=== PATIENT | female | born 1935 | race Asian ===

== ENCOUNTER → 2018-10-17 | Outpatient (CLI) | payer MEDICARE ==
[~2018-10-17] MED LIST: ALDACTONE25 MG PO; ANTIVERT25 MG PO; ASPIRIN81 M2 PO; ATORVASTATIN CA10 MG PO; ATORVASTATIN CA40 MG PO; B12INJ IM; BAUSCH; BRILINTA90 MG PO; DONEPEZIL HCL5 MG PO; ESTRACE CREAM VAG; IMDUR 30 MG TAB30 M1 PO; LIPITOR 10 MG10 M1 PO; LISINOPRIL10 MG PO; LOPRESSOR25 PO; MACROBID 100 M100 M1 PO; NITROGLYCERIN0.4 MG SL; NITROGLYCERIN0.4 MG SUBLING; PREMARIN0.625 MG PO; PREMARIN0.9 M1 PO; PREMARIN0.9 MG; PREMARIN1.25 MG PO; PROLOPRIM100 MG PO; PYRIDIUM200 MG PO; SYNTHROID300 MCG; SYNTHROID75 MCG PO; SYSTANE ULTRA 010 ML OPHTHALMIC; TRAVATAN Z2.5 ML OPHTHALMIC; [UNRECOGNIZED DRUG - OTHER]; [UNRECOGNIZED DRUG - REMARK]
== END ==
LOC: M.RAD 15:08
DX: M47.896 Other spondylosis, lumbar region (principal); M41.86 Other forms of scoliosis, lumbar region; M16.11 Unilateral primary osteoarthritis, right hip; M25.561 Pain in right knee

== ENCOUNTER 2019-01-05 10:10 | Inpatient (IN) | payer MEDICARE ==
[~2019-01-05] VITALS: Ht 157.5 cm; Wt 57.2 kg
[2019-01-05 10:15] VITALS: BP 161/59
[2019-01-05 10:33] LABS: HEMATOCRIT 38.5 % (37.0-47.0); HEMOGLOBIN 12.7 gm/dL (12.0-15.0); MCH 28.3 pg (26.0-34.0); MCHC 33.1 g/dL (28.0-37.0); MCV 85.5 fL (80.0-100.0); MPV 7.5 fl. (7.2-11.1); RBC 4.5 mil/uL (4.20-5.00); RDW-CV 14.2 % (10.5-14.5); WBC 6.2 thou/uL (4.0-11.0)
[2019-01-05 10:43] LABS: POC CA IONIZED 4.7 mg/dL (4.5-5.3); POC CREATININE 1.2 mg/dL (0.6-1.3); POC HEMOGLOBIN 12.6 g/dL (12.0-17.0); POC POTASSIUM 3.7 mmol/L (3.5-4.9)
[2019-01-05 10:44] LABS: PROTIME 10.5 Seconds (9.20-11.50)
[2019-01-05 10:50] LABS: ALBUMIN 3.5 g/dL (3.4-5.0); CREATININE 1.4 mg/dL (0.6-1.3); POTASSIUM 3.7 mmol/L (3.5-5.1); TOTAL BILIRUBIN 0.6 mg/dL (<0.1-1.0); TOTAL PROTEIN 6.9 g/dL (6.4-8.2)
[2019-01-05 11:31] LABS: URINE BILIRUBIN NEGATIVE (Negative); URINE BLOOD TRACE (Negative); URINE CLARITY CLEAR; URINE COLOR STRAW; URINE GLUCOSE-RANDOM NEGATIVE (Negative); URINE KETONES NEGATIVE (Negative); URINE LEUKOCYTES NEGATIVE (Negative); URINE NITRITE NEGATIVE (Negative); URINE PROTEIN NEGATIVE (Negative); URINE UROBILINOGEN 0.2 E.U./dl (0.2-1.0)
[2019-01-05 11:40] LABS: PCO2 31.4 mmHg (35.0-45.0); PO2 75.4 mmHg (75.0-100.0); pH 7.462 (7.340-7.450)
[2019-01-05 12:14] VITALS: BP 165/70
[2019-01-05 12:28] VITALS: BP 164/73
[2019-01-05 15:47] VITALS: BP 139/91
[2019-01-05 20:00] VITALS: BP 154/58
[2019-01-06] VITALS: BP 148/59
[2019-01-06 04:00] VITALS: BP 150/59
[2019-01-06 08:00] VITALS: BP 145/75
[2019-01-06 12:00] VITALS: BP 128/54
[2019-01-06 15:04] VITALS: BP 128/54
[2019-01-06 15:49] LABS: CHOLESTEROL 261 mg/dL (<200); HDL CHOLESTEROL 38 mg/dL (>40); LDL CHOLESTEROL 169 mg/dL (<100); TC:HDL 6.9 Ratio (Not establshd); TRIGLYCERIDE 270 mg/dL (<150); VLDL 54 mg/dL (<40)
[2019-01-06 15:50] LABS: SERUM ASSESSMENT Clear
--- NOTE | 2019-01-07 11:02 | EKG ---
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 : 1935 Requested By: Kala Somers Order Number: [id number] MD: Syed Thrasher Measurements Intervals [place] Rate: 56 P: 34 [place]: 123 QRS: -18 QRSD: 74 T: 70 QT: 439 QTc: 424 Interpretive Statements Sinus rhythm Borderline left axis deviation Abnormal R-wave progression, early transition Compared to ECG 04/12/2017 11:31:21 No significant changes Electronically Signed On 01-07-2019 11:01:54 CELL LINER by Syed Thrasher [email or web address] <ELECTRONICALLY SIGNED> By: Syed Thrasher MD, FAC 01/07/19 1101 1049 1049 Syed Thrasher MD, [facility] /EPI
== END 2019-01-06 15:35 | disposition home or self-care (01) | DRG 69 ==
LOC: M.ERS 10:10 → M.TBA-ER 11:32 → M.2W 12:44
PROVIDERS: Personal Emergency Response Attendant; ADMIT Internal Medicine
DX: G45.9 Transient cerebral ischemic attack, unspecified (principal); E03.9 Hypothyroidism, unspecified; E78.00 Pure hypercholesterolemia, unspecified; G30.9 Alzheimer's disease, unspecified; F02.80 Dementia in other diseases classified elsewhere, unspecified severity, without behavioral disturbance, psychotic disturbance, mood disturbance, and anxiety; I10 Essential (primary) hypertension; Z81.8 Family history of other mental and behavioral disorders; Z90.710 Acquired absence of both cervix and uterus; Z95.5 Presence of coronary angioplasty implant and graft; Z88.1 Allergy status to other antibiotic agents; Z91.02 Food additives allergy status; Z82.49 Family history of ischemic heart disease and other diseases of the circulatory system; Z79.899 Other long term (current) drug therapy

== ENCOUNTER 2019-04-12 20:13 | Inpatient (IN) | payer MEDICARE ==
[~2019-04-12] VITALS: Ht 157.5 cm; Wt 59.0 kg
[2019-04-12 20:15] VITALS: BP 144/69
[2019-04-12] MEDS ORDERED: MURO-12815 ML/BOT OPHTHALMIC (20:24)
[2019-04-12] MEDS ORDERED: SYSTANE ULTRA 010 ML OPHTHALMIC (20:25)
--- NOTE | 2019-04-12 20:42 | NUR ---
PT ARRIVED VIA STRETCHER. PT MOVED TO ER BED VIA ER STAFF. PT AAOX4. RESP REG AND UNALBORED SKIN W/D. O2 2L BNC INTACT. SPOUSE PRESENT AT BEDSIDE. PT STATED CHEST PAIN RADIATED TO RIGHT ARM. MONITORS APPLIED, EKG PERFORMED, DR PLAZA AT BEDSIDE. WILL CONTINUE TO MONITOR
[2019-04-12 20:49] LABS: ABSOLUTE BASOPHILS 0.1 thou/uL (0.0-0.2); ABSOLUTE EOSINOPHILS 0.4 thou/uL (0.0-0.7); ABSOLUTE LYMPHOCYTES 1.9 thou/uL (0.8-5.3); ABSOLUTE MONOCYTES 0.6 thou/uL (0.0-1.2); ABSOLUTE NEUTROPHILS 5.1 thou/uL (1.6-8.1); BASOPHILS 1.2 %; EOSINOPHILS 5.3 %; HEMATOCRIT 35.4 % (37.0-47.0); HEMOGLOBIN 11.9 gm/dL (12.0-15.0); LYMPHOCYTES 23.8 %; MCH 28.1 pg (26.0-34.0); MCHC 33.7 g/dL (28.0-37.0); MCV 83.4 fL (80.0-100.0); MONOCYTES 7.2 %; MPV 7.6 fl. (7.2-11.1); NUCLEATED RBCS 0 /100WBC; PLATELET COUNT* 435 thou/uL (150-400); POLYS 62.5 %; RBC 4.24 mil/uL (4.20-5.00); RDW-CV 14.1 % (10.5-14.5); WBC 8.1 thou/uL (4.0-11.0)
[2019-04-12 20:54] LABS: ANION GAP 10 mmol/L (7-16); BUN 24 mg/dL (7-18); CALCIUM 8.9 mg/dL (8.5-10.1); CHLORIDE 104 mmol/L (98-107); CO2 26 mmol/L (21-32); CREATININE 1.3 mg/dL (0.6-1.3); GLUCOSE 130 mg/dL (70-99); POTASSIUM 3.9 mmol/L (3.5-5.1); SODIUM 140 mmol/L (136-145)
[2019-04-12 21:04] LABS: ALBUMIN 3.5 g/dL (3.4-5.0); ALKALINE PHOSPHATASE 115 U/L (46-116); LIPASE 343 U/L (73-393); MAGNESIUM 2.3 mg/dL (1.8-2.4); NT-PRO BRAIN NAT PEPTIDE 88 pg/mL (<300); SGPT 30 U/L (30-65); TOTAL BILIRUBIN 0.3 mg/dL (<0.1-1.0); TOTAL PROTEIN 6.9 g/dL (6.4-8.2); TROPONIN-I LEVEL <0.06 ng/mL (<0.06)
[2019-04-12 21:42] LABS: SGOT 26.4 U/L (15-37)
[2019-04-12 22:57] VITALS: BP 129/56
[2019-04-13 04:00] VITALS: BP 165/50
[2019-04-13 08:00] VITALS: BP 139/52
[2019-04-13 11:29] VITALS: BP 144/69
--- NOTE | 2019-04-13 12:31 | NUR ---
ASSUMED PT CARE REPORT RECEIVED FROM NURSE. PT IS AOX3 FORGETFUL DUE TO HX OF DEMENTIA. DENIES ANY KIND OF PAIN. NO CHEST PAIN. SINUS RYTHM TRACING ON RN DISCHARGE. ON RA. PT IN ROOM. NPO STATUS MAINTAINED, AWAITING FOR BOX OFFICE AGENT. BOX OFFICE AGENT SIGNED OFF. HOSPITALIST NOTIFIED. DISCHARGE PENDING. WILL CONTINUE TO MONITOR PT.
[2019-04-13 13:10] VITALS: BP 144/69
--- NOTE | 2019-04-14 12:21 | CON ---
[address] [address] CONSULTATION Name: LATASHAADRYAN Room: [address] IN M.R.#: [id number] Admission: 04/12/19 Attend Phys: Mk Leonardo Discharge: 04/13/19 Date of : 37 Report #: [id number] THIS REPORT FOR: //name// CC: Sanjay Bullock DATE OF SERVICE: 04/13/2019 CARDIOLOGY CONSULTATION INDICATION: Chest pain. HISTORY OF PRESENT ILLNESS: The patient is a very pleasant 83-year-old white female with history of coronary artery disease. In February 2013, she had percutaneous coronary intervention to the proximal right coronary artery and proximal left anterior descending coronary artery in a staged fashion. She has been stable since that time. Last evening, she had midsternal chest discomfort radiating to the right arm. She was given a sublingual nitroglycerin with relief of pain and presented to the hospital for further evaluation. Initial EKG shows sinus rhythm with no acute ST or T-wave abnormalities. Troponins are all less than 0.06. At the time of my interview, the patient is pain free. She has had no recurrence of her discomfort since the initial episode. With her chest pain, she denied any associated shortness of breath, nausea or diaphoresis. PAST MEDICAL HISTORY: 1. Coronary artery disease with percutaneous coronary intervention to LAD and RCA in February 2013. 2. Hyperlipidemia. 3. Remote history of hysterectomy. 4. Remote history of tonsillectomy. 5. Remote history of rotator cuff surgery. FAMILY HISTORY: Positive for coronary artery disease in the patient's brother and father. SOCIAL HISTORY: The patient is retired. She drinks alcohol occasionally. She does not smoke. She lives with her . ALLERGIES: None documented. HOME MEDICATIONS: Aspirin 81 mg daily, Aricept 10 mg daily, Synthroid 75 mcg daily, Antivert 25 mg q.i.d. p.r.n., Nitrostat sublingual p.r.n., propylene glycol/PEG 400 as directed, Travatan eyedrops at bedtime, [place] [address] CONSULTATION Name: ARLEEN PAGAN Room: [address]#: [id number] Admission: 04/12/19 Attend Phys: Mk Leonardo Discharge: 04/13/19 Date of : 37 Report #: [id number] directed. REVIEW OF SYSTEMS: Fourteen-point review of systems positive for chest discomfort as outlined above, cough that is nonproductive. She wears glasses without acute visual changes. Otherwise, 14-point review of systems was unremarkable. PHYSICAL EXAMINATION: VITAL SIGNS: Stable. Blood pressure 139/52, pulse is 60 and regular. GENERAL: This is a pleasant elderly female, in no distress. Mood and affect appropriate. HEENT: Extraocular muscles intact. Mucous membranes are moist. NECK: Shows no jugular venous distention. There are no carotid bruits. CHEST: Reveals clear lung berger without wheezes or rales. CARDIOVASCULAR: Reveals a regular rhythm with normal S1 and S2. I do not appreciate gallop or murmur. ABDOMEN: Reveals normal bowel sounds. The abdomen is soft, nontender. EXTREMITIES: Shows no edema. Peripheral pulses 2+ and palpable. SKIN: Warm and dry. A 12-lead EKG shows sinus rhythm without acute ST or T-wave abnormality. LABORATORY DATA: Reviewed. Sodium 140, potassium 3.9, chloride 104, bicarbonate 26, BUN 24, creatinine 1.3, serum glucose 130. LFTs within normal limits. Troponins are less than 0.06 on 3 separate occasions. NT-proBNP 88. White blood cell count 8.1, hemoglobin 11.9, platelet count 435,000. Chest x-ray shows no acute abnormality. IMPRESSION AND RECOMMENDATIONS: 1. Chest pain, resolved. The patient has ruled out for myocardial infarction. She does have a history of coronary artery disease. I believe she should follow up with outpatient stress testing. Continue daily aspirin. 2. Hyperlipidemia. The patient is not currently on a statin agent. The patient's daughter was going to discuss with her why she might not be on a statin agent. There was some concern about possible intolerance. At this point in time, the patient appears stable from a cardiac standpoint. I believe she could be discharged to home and have outpatient followup at this time. <ELECTRONICALLY SIGNED> By: Hung Lorenzo MD, FACC 04/14/19 1221 1104 Hung Lorenzo MD, FACC /nt
--- NOTE | 2019-04-14 16:59 | EKG ---
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 : 1935 Requested By: Chino Hill Order Number: [id number] MD: Hung Lorenzo Measurements Intervals [place] Rate: 61 P: 44 ME: 113 QRS: -20 QRSD: 74 T: 66 QT: 435 QTc: 439 Interpretive Statements Sinus rhythm Short ME interval Left axis deviation ST elevation, consider early repolarization Compared to ECG 02/16/2019 18:48:10 ST (T wave) deviation now present Electronically Signed On 04-14-2019 16:58:58 CDT by Hung Lorenzo [email or web address] <ELECTRONICALLY SIGNED> By: Hung Lorenzo MD, FAC 04/14/19 1658 18 18 Hung Lorenzo MD, [facility] /EPI
== END 2019-04-13 14:10 | disposition home or self-care (01) | DRG 303 ==
LOC: M.ERS 20:13 → M.TBA-ER 21:31 → M.2W 21:31
PROVIDERS: Emergency Medicine Emergency Medical Services; ADMIT Internal Medicine
DX: I25.119 Atherosclerotic heart disease of native coronary artery with unspecified angina pectoris (principal); I10 Essential (primary) hypertension; E03.9 Hypothyroidism, unspecified; E78.5 Hyperlipidemia, unspecified; Z90.710 Acquired absence of both cervix and uterus; Z79.82 Long term (current) use of aspirin; Z91.018 Allergy to other foods; Z82.49 Family history of ischemic heart disease and other diseases of the circulatory system

== ENCOUNTER 2019-12-23 12:00 | Inpatient (IN) | payer MEDICARE ==
[~2019-12-23] VITALS: Ht 157.5 cm; Wt 60.8 kg
--- NOTE | ~2019-12-23 | EEG ---
[address] [address] EEG STUDY REPORT Name: ARLEEN PAGAN Room: [address] IN .R.#: [id number] Admission: 12/23/19 Attend Phys: Jan Renteria, Discharge: Date of : 37 Report #: [id number] THIS REPORT FOR: //name// CC: Sanjay Renteria DATE OF SERVICE: 12/24/2019 This patient is being evaluated for altered mental status. EEG was done by placing the electrode by standard 10-20 system of electrode placement. Both referential and sequential montages were used for recording. Background activity in this patient's EEG is about 8 Hz and 30 microvolt. It is a symmetrical activity. The patient went to sleep that is associated with bilateral slowing and vertex sharp waves. Photic stimulation was unremarkable. Throughout the record, no active epileptiform activity was noticed. IMPRESSION: This is an abnormal EEG because it is intermixed with theta range slowing on both sides. That is a nonspecific abnormality which can occur with encephalopathy, effect of psychotropic medication, dementia, etc. Clinical correlation is recommended. By: 1403 1416Elio Morataya MD /nt
--- NOTE | ~2019-12-23 | EKG ---
[place] [address] ELECTROCARDIOGRAM REPORT Name: ARLEEN PAGAN Room: [place] [address] ADM IN .R.#: [id number] Admission: 12/23/19 Attend Phys: Jan Garcia Discharge: Date of : 37 Date of Service: 12/23/19 1250 Report #: [id number] THIS REPORT FOR: cc: Cornelio Yarbrough MD, Dean L. 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
--- NOTE | ~2019-12-23 | CON ---
[address] [address] CONSULTATION Name: LATASHAADRYAN Room: [address] IN M.R.#: [id number] Admission: 12/23/19 Attend Phys: Jan Renteria, Discharge: Date of : 37 Report #: [id number] THIS REPORT FOR: //name// cc: Cornelio Yarbrough MD, Dean L. MD ~ THIS REPORT FOR: //name// CC: Sanjay Renteria DATE OF SERVICE: 12/23/2019 HISTORY OF PRESENT ILLNESS: This is an 84-year-old female patient who was seen by me for episodes which are poorly defined. I do not have any family member here. Apparently, this patient has a history of dementia. She is having episodes of slurred speech; those episodes have resolved. They came spontaneously without any trauma. She underwent an MRI of the brain and MRA and that was reviewed and they are unremarkable. REVIEW OF SYSTEMS: Positive for dementia that appeared to be advanced. is not here to tell me who is patient's doctor for that. I tried to carry out a 14-point review of system in this patient. She does have some hypothyroidism. She does have coronary artery disease. She has a history of high cholesterol, but that is all the history she provides all I can get from the records. Rest of the 14-point review of systems was mostly noncontributory or unavailable. PAST MEDICAL HISTORY: Positive for coronary artery disease. FAMILY HISTORY: Negative for early age stroke. SOCIAL HISTORY: She lives with . I will try to contact him. PHYSICAL EXAMINATION: Indicate that the patient is alert, responsive, does not know what month it is, but that is her baseline according to the records. Her speech looks intact to me and memory and fund of knowledge is markedly diminished. Cranial nerve examination 2-12, the best it could be carried looks nonfocal. I tried to do the visual field evaluation in this patient. The patient does not cooperate in that regard. She does not count the fingers properly and is very difficult to tell anything further in that regard. The patient's neuromuscular examination as checked for strength, reflexes, tone and sensation looks symmetrical. There is no meningeal sign. There is no carotid bruit. Cardiac examination is unremarkable. Pulses are nicely palpable. No edema, cyanosis or jaundice. I could not look at the patient's fundus. She is moderately built individual. She can hear and vision looks okay the best I can tell, but she does not count the fingers properly. She has no thyroid mass or carotid bruit. Blood pressure is 154/68, respiration is 8, pulse is 64, temperature is 97.3. LABORATORY DATA: White count is 7.1. Sodium is 141. MRI is reviewed and is summarized as above. IMPRESSION: This patient has episodes that can be transient ischemic attack, but that can also be non-convulsive seizure because this patient has dementia and they are predisposed to seizure. No seizures are difficult to diagnose. EEG is typically negative, but does help if it is positive. I will get it done. We will do some blood workup and if the episode continues, we may give a trial with anticonvulsant as an outpatient, but presently I would not do that. I discussed that with the patient, but I do not think she understands things. I will try to discuss the situation with the patient's tomorrow. By: 2141Ptejal Morataya MD /nt
[~2019-12-23 12:00] MED LIST changes: +MURO-12815 ML/BOT OPHTHALMIC
[2019-12-23 12:05] VITALS: BP 165/66
[2019-12-23 12:34] LABS: ABSOLUTE BASOPHILS 0.1 thou/uL (0.0-0.2); ABSOLUTE EOSINOPHILS 0.3 thou/uL (0.0-0.7); ABSOLUTE LYMPHOCYTES 1.7 thou/uL (0.8-5.3); ABSOLUTE MONOCYTES 0.5 thou/uL (0.0-1.2); ABSOLUTE NEUTROPHILS 4.6 thou/uL (1.6-8.1); BASOPHILS 1.2 %; EOSINOPHILS 4.6 %; HEMATOCRIT 36.7 % (37.0-47.0); HEMOGLOBIN 12.4 gm/dL (12.0-15.0); LYMPHOCYTES 23.2 %; MCH 28.2 pg (26.0-34.0); MCHC 33.8 g/dL (28.0-37.0); MCV 83.6 fL (80.0-100.0); MONOCYTES 6.8 %; MPV 7.5 fl. (7.2-11.1); NUCLEATED RBCS 0 /100WBC; PLATELET COUNT* 413 thou/uL (150-400); POLYS 64.2 %; RBC 4.39 mil/uL (4.20-5.00); RDW-CV 13.9 % (10.5-14.5); WBC 7.1 thou/uL (4.0-11.0)
[2019-12-23 12:44] LABS: PROTIME 10.5 Seconds (9.20-11.50)
[2019-12-23 12:46] LABS: CALCIUM 9.2 mg/dL (8.5-10.1); CREATININE 1.2 mg/dL (0.6-1.3); POTASSIUM 3.7 mmol/L (3.5-5.1)
[2019-12-23 12:52] LABS: ALBUMIN 3.6 g/dL (3.4-5.0); TOTAL BILIRUBIN 0.4 mg/dL (<0.1-1.0); TOTAL PROTEIN 7.1 g/dL (6.4-8.2)
[2019-12-23 18:10] VITALS: BP 158/69
[2019-12-23 18:25] VITALS: BP 154/68
[2019-12-23 20:00] VITALS: BP 164/73
[2019-12-24] VITALS: BP 162/63
[2019-12-24 04:00] VITALS: BP 113/80
[2019-12-24 07:50] VITALS: BP 184/58
[2019-12-24 08:36] LABS: ALBUMIN 3.7 g/dL (3.4-5.0); CALCIUM 9.1 mg/dL (8.5-10.1); CREATININE 1.1 mg/dL (0.6-1.3); POTASSIUM 3.7 mmol/L (3.5-5.1); TOTAL BILIRUBIN 0.5 mg/dL (<0.1-1.0); TOTAL PROTEIN 7.4 g/dL (6.4-8.2)
[2019-12-24 09:30] LABS: HEMOGLOBIN 13.2 gm/dL (12.0-15.0); MCH 28.1 pg (26.0-34.0); MCV 82.7 fL (80.0-100.0); MPV 8.1 fl. (7.2-11.1); RBC 4.72 mil/uL (4.20-5.00); RDW-CV 13.9 % (10.5-14.5); WBC 8.9 thou/uL (4.0-11.0)
[2019-12-24 11:36] LABS: CHOLESTEROL 264 mg/dL (<200); HDL CHOLESTEROL 37 mg/dL (>40); LDL CHOLESTEROL 188 mg/dL (<100); TC:HDL 7.1 Ratio (Not establshd); TRIGLYCERIDE 199 mg/dL (<150); VLDL 40 mg/dL (<40)
[2019-12-24 11:37] LABS: SERUM ASSESSMENT Clear
[2019-12-24 12:46] VITALS: BP 141/64
[2019-12-24 16:08] VITALS: BP 136/62
[2019-12-24 20:00] VITALS: BP 147/53
[2019-12-24 23:06] LABS: GLYCOHEMOGLOBIN (HGB A1C) 5.9 % (4.8-5.6)
[2019-12-25] VITALS: BP 143/53
[2019-12-25 04:00] VITALS: BP 153/65
[2019-12-25 08:00] VITALS: BP 143/68
[2019-12-25 11:45] VITALS: BP 124/53
[2019-12-25 14:22] LABS: URINE BILIRUBIN NEGATIVE (Negative); URINE BLOOD 1+ (Negative); URINE CLARITY CLEAR; URINE COLOR YELLOW; URINE GLUCOSE-RANDOM NEGATIVE (Negative); URINE KETONES NEGATIVE (Negative); URINE LEUKOCYTES NEGATIVE (Negative); URINE NITRITE NEGATIVE (Negative); URINE PROTEIN NEGATIVE (Negative); URINE SPECIFIC GRAVITY >= 1.030 (1.005-1.030); URINE UROBILINOGEN 0.2 E.U./dl (0.2-1.0)
[2019-12-25 14:28] LABS: BACTERIA >30 Many /HPF (None Seen); CASTS None Seen /LPF (None Seen); CRYSTALS None Seen /LPF (None Seen); MUCUS >6 Heavy strn/LPF (None Seen); SQUAMOUS 4-10 Moderate /LPF (0-3); URINE RBC 0-2 Rare /HPF (0-2); URINE WBC 0-5 Rare /HPF (0-5)
[2019-12-25] MEDS ORDERED: COLACE100 MG PO (15:46)
[2019-12-25] MEDS ORDERED: MILK OF MA400 MG/5 M PO (15:49)
[2019-12-25 16:06] VITALS: BP 124/53
== END 2019-12-25 16:00 | disposition home or self-care (01) | DRG 69 ==
LOC: M.ERS 12:00 → M.TBA-ER 12:55 → M.2W 12:55
PROVIDERS: Emergency Medicine Emergency Medical Services; Psychiatry & Neurology Neuromuscular Medicine; ADMIT Family Medicine
DX: G45.9 Transient cerebral ischemic attack, unspecified (principal); E78.00 Pure hypercholesterolemia, unspecified; E03.9 Hypothyroidism, unspecified; F03.90 Unspecified dementia, unspecified severity, without behavioral disturbance, psychotic disturbance, mood disturbance, and anxiety; I25.10 Atherosclerotic heart disease of native coronary artery without angina pectoris; E78.5 Hyperlipidemia, unspecified; Z79.82 Long term (current) use of aspirin; Z82.49 Family history of ischemic heart disease and other diseases of the circulatory system; Z79.899 Other long term (current) drug therapy; Z91.018 Allergy to other foods

== ENCOUNTER 2020-07-25 10:49 | Emergency (ER) | payer MEDICARE ==
[~2020-07-25] VITALS: Ht 162.6 cm; Wt 54.7 kg
[~2020-07-25 10:49] MED LIST changes: +COLACE100 MG PO; +MILK OF MA400 MG/5 M PO
[2020-07-25 11:12] LABS: ABSOLUTE BASOPHILS 0.1 thou/uL (0.0-0.2); ABSOLUTE EOSINOPHILS 0.2 thou/uL (0.0-0.7); ABSOLUTE LYMPHOCYTES 1.7 thou/uL (0.8-5.3); ABSOLUTE MONOCYTES 0.4 thou/uL (0.0-1.2); ABSOLUTE NEUTROPHILS 5.3 thou/uL (1.6-8.1); BASOPHILS 1.1 %; EOSINOPHILS 2.8 %; HEMATOCRIT 37.4 % (37.0-47.0); HEMOGLOBIN 12.9 gm/dL (12.0-15.0); LYMPHOCYTES 21.8 %; MCH 28.5 pg (26.0-34.0); MCHC 34.4 g/dL (28.0-37.0); MCV 82.8 fL (80.0-100.0); MONOCYTES 5.1 %; MPV 7.5 fl. (7.2-11.1); NUCLEATED RBCS 0 /100WBC; PLATELET COUNT* 393 thou/uL (150-400); POLYS 69.2 %; RBC 4.52 mil/uL (4.20-5.00); RDW-CV 14.7 % (10.5-14.5); WBC 7.6 thou/uL (4.0-11.0)
[2020-07-25 11:21] LABS: CALCIUM 8.9 mg/dL (8.5-10.1); CREATININE 1.4 mg/dL (0.6-1.3); POTASSIUM 3.6 mmol/L (3.5-5.1)
[2020-07-25 11:32] LABS: ALBUMIN 3.5 g/dL (3.4-5.0); TOTAL BILIRUBIN 0.4 mg/dL (<0.1-1.0); TOTAL PROTEIN 6.9 g/dL (6.4-8.2)
[2020-07-25 14:06] VITALS: BP 122/42
--- NOTE | 2020-07-26 10:10 | EKG ---
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: : 1935 Requested By: Chino Hill Order Number: [id number] MD: Loyd Davis Measurements Intervals [place] Rate: 57 P: 70 [place]: 135 QRS: -11 QRSD: 83 T: 84 QT: 461 QTc: 449 Interpretive Statements Sinus rhythm Probable left atrial enlargement Nonspecific T abnrm, anterolateral leads Compared to ECG 12/23/2019 12:50:46 No significant changes Electronically Signed On 07-26-2020 10:10:20 CDT by Loyd Davis [email or web address] <ELECTRONICALLY SIGNED> By: Loyd Davis MD, [facility] 07/26/20 1010 1055 1055 Loyd Davis MD, [facility] /EPI
== END 2020-07-25 14:08 | disposition home or self-care (01) ==
LOC: M.ERS 10:49
PROVIDERS: Emergency Medicine Emergency Medical Services
DX: R07.89 Other chest pain (principal); E78.00 Pure hypercholesterolemia, unspecified; E03.9 Hypothyroidism, unspecified; Z91.018 Allergy to other foods

== ENCOUNTER 2020-07-25 19:29 | Inpatient (IN) | payer MEDICARE ==
[2020-07-25] VITALS (8 sets, daily range): BP systolic 109–173; BP diastolic 38–65
[~2020-07-25] VITALS: Ht 157.5 cm; Wt 51.7 kg
[2020-07-25 19:54] LABS: ABSOLUTE BASOPHILS 0.1 thou/uL (0.0-0.2); ABSOLUTE EOSINOPHILS 0.2 thou/uL (0.0-0.7); ABSOLUTE LYMPHOCYTES 2.3 thou/uL (0.8-5.3); ABSOLUTE MONOCYTES 0.7 thou/uL (0.0-1.2); ABSOLUTE NEUTROPHILS 6.2 thou/uL (1.6-8.1); BASOPHILS 1.1 %; EOSINOPHILS 2.3 %; HEMATOCRIT 36.6 % (37.0-47.0); HEMOGLOBIN 12.7 gm/dL (12.0-15.0); LYMPHOCYTES 23.9 %; MCH 28.5 pg (26.0-34.0); MCHC 34.6 g/dL (28.0-37.0); MCV 82.1 fL (80.0-100.0); MONOCYTES 7.2 %; MPV 7.2 fl. (7.2-11.1); NUCLEATED RBCS 0 /100WBC; PLATELET COUNT* 425 thou/uL (150-400); POLYS 65.5 %; RBC 4.46 mil/uL (4.20-5.00); RDW-CV 14.2 % (10.5-14.5); WBC 9.4 thou/uL (4.0-11.0)
[2020-07-25 20:05] LABS: APTT 25.7 Seconds (25.0-31.3); PROTIME 10.4 Seconds (9.20-11.50)
[2020-07-25 20:13] LABS: CALCIUM 8.9 mg/dL (8.5-10.1); CREATININE 1.4 mg/dL (0.6-1.3); POTASSIUM 3.9 mmol/L (3.5-5.1)
[2020-07-25 20:27] LABS: ALBUMIN 3.5 g/dL (3.4-5.0); CK-MB MASS 1.4 ng/mL (<0.5-3.6); MAGNESIUM 2.3 mg/dL (1.8-2.4); TOTAL BILIRUBIN 0.3 mg/dL (<0.1-1.0); TOTAL PROTEIN 6.5 g/dL (6.4-8.2)
[2020-07-26] VITALS (37 sets, daily range): BP systolic 86–158; BP diastolic 33–115
[2020-07-26 02:01] LABS: HEMATOCRIT 36.2 % (37.0-47.0); HEMOGLOBIN 12.1 gm/dL (12.0-15.0); MCH 27.7 pg (26.0-34.0); MCHC 33.3 g/dL (28.0-37.0); MCV 83.1 fL (80.0-100.0); MPV 7.3 fl. (7.2-11.1); RBC 4.36 mil/uL (4.20-5.00); RDW-CV 14.5 % (10.5-14.5); WBC 18.8 thou/uL (4.0-11.0)
[2020-07-26 02:15] LABS: CREATININE 1.3 mg/dL (0.6-1.3); POTASSIUM 3.4 mmol/L (3.5-5.1); TROPONIN-I LEVEL 0.48 ng/mL (<0.06)
[2020-07-26 05:44] LABS: URINE BILIRUBIN NEGATIVE (Negative); URINE BLOOD TRACE (Negative); URINE CLARITY CLEAR; URINE COLOR YELLOW; URINE GLUCOSE-RANDOM NEGATIVE (Negative); URINE KETONES NEGATIVE (Negative); URINE LEUKOCYTES NEGATIVE (Negative); URINE NITRITE NEGATIVE (Negative); URINE PROTEIN NEGATIVE (Negative); URINE UROBILINOGEN 0.2 E.U./dl (0.2-1.0)
--- NOTE | 2020-07-26 10:16 | EKG ---
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[place] : 1935 Requested By: Joby Pena Order Number: [id number] MD: Loyd Davis Measurements Intervals [place] Rate: 58 P: 56 [place]: 134 QRS: -20 QRSD: 92 T: 76 QT: 454 QTc: 446 Interpretive Statements Sinus rhythm Probable left atrial enlargement Borderline left axis deviation Minimal ST depression, lateral leads Compared to ECG 07/25/2020 10:55:00 no change Electronically Signed On 07-26-2020 10:16:26 CDT by Loyd Davis [email or web address] <ELECTRONICALLY SIGNED> By: Loyd Davis MD, FAC 07/26/20 1016 34 34 Loyd Davis MD, FAC /EPI
--- NOTE | 2020-07-26 10:17 | EKG ---
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[place] : 1935 Requested By: Loyd Davis Order Number: [id number] MD: Loyd Davis Measurements Intervals [place] Rate: 55 P: 57 [place]: 144 QRS: 9 QRSD: 85 T: 103 QT: 464 QTc: 444 Interpretive Statements Sinus bradycardia Inferior infarct, acute (RCA) Lateral leads are also involved Baseline wander in lead(s) V6 Compared to ECG 07/25/2020 19:35:07 inferior injury pattern now noted Electronically Signed On 07-26-2020 10:17:44 CDT by Loyd Davis [email or web address] <ELECTRONICALLY SIGNED> By: Loyd Davis MD, FACC 07/26/20 1017 08 08 Loyd Davis MD, FAC /EPI
--- NOTE | 2020-07-26 10:49 | CARD ---
[address] [address] CARDIAC CATH REPORT Name: ARLEEN PAGAN Room: [address] [facility]#: [id number] Admission: 07/25/20 Attend Phys: Jesica Elena MD Discharge: Date of : 37 Report #: [id number] THIS REPORT FOR: //name// cc: Cornelio Yarbrough MD, Dean L. MD ~ APPROVED REPORT Study performed: 07/25/2020 20:37:21 Patient Details Patient Status: ED Room #: The patient is a 84 year-old female Event Personnel Kenya Dean, Steve Simmons RN RN, Reg Wray Blick, David Feed Mixer Helper Procedures Performed Art Access - R femoral artery* Left Heart Cath w/LT VGram [id number] LHCLV DEVIN Place w/wo Plasty Addl BR PDA C9601 DESADDL DEVIN Revasc AMI Total/Sub Single RCA C9606 AMIREVSING Indication Abnormal ECG, STEMI (>0 to less than or equal to 6 hours), Chest pain Risk Factors Hypercholesterolemia, Coronary Artery Disease, Diabetes Previous Procedures/Diagnoses Previous PCI, Previous [place] Admission/Lab Medications/Medications given during procedure Glycoprotein IllbIlla Inhibitors, Heparin Unfract. Procedure Narrative The patient was brought emergently to the Cardiac Catheterization Laboratory and was prepped and draped in a sterile manner. The right femoral was infiltrated with 2% Lidocaine subcutaneous anesthesia. A Bailey 6 FR sheath was inserted into the right femoral artery. Coronary angiography was performed using coronary diagnostic catheters. The right coronary system was accessed and visualized with a Diagnostic catheter. The left coronary system was accessed and visualized with a Diagnostic catheter. [place] [address] CARDIAC CATH REPORT Name: ARLEEN PAGAN Room: [address] IN [facility]#: [id number] Admission: 07/25/20 Attend Phys: Jesica Elena MD Discharge: Date of : 37 Report #: [id number] accessed and visualized with a Diagnostic catheter. Left ventricular/Aortic Valve gradient assessed via catheter pullback. Left ventriculogram was performed in WALLACE projection. Closure device was deployed with a 6 Fr Angioseal STS 6Fr. The patient tolerated the procedure well and there were no complications associated with the procedure. There was no hematoma. Intraoperative Conscious Sedation No sedation used. Contrast Type and Amount: Visipaque 145 ml Coronary Angiography The patient's coronary anatomy is co- dominant. Diagnostic Cath Left Main 0% stenosis LAD stent in proximal lad had 0% restenosis. Mid lad had a 50% stenosis Diagonal 3 medium sized vessel with 80% proximal stenosis Circumflex 50% mid stenosis OM1 small vessel with ostial 70% stenosis OM2 large vessel with 80% mid stenosis Right Coronary 30% proximal stenosis. Proximal stent appeared acutely occluded with thrombus R PDA medium vessel with proximal 90% stenosis RPLV small vessel with ostial 99% stenosis Left Ventriculography The left ventricular ejection fraction is estimated to be 60-65%. Left ventricular wall motion abnormalities are not present. There is no mitral insufficiency. Hemodynamics The aortic pressure is 155/67 mmHg with a mean of 96 mmHg. The left ventricular pressure is 156/10 mmHg with a mean of mmHg. The left ventricular end diastolic pressure is 17 mmHg. There was no gradient across the aortic valve upon pullback. Pullback from the left ventricle to the aorta revealed no gradient across the aortic valve. PCI Technique Lesion Anticoagulation was achieved with Heparin. bolus of IV aggrastat given Percutaneous coronary intervention was performed on the proximal right coronary artery. The [place] [address] CARDIAC CATH REPORT Name: ARLEEN PAGAN Room: [address]#: [id number] Admission: 07/25/20 Attend Phys: Jesica Elena MD Discharge: Date of : 37 Report #: [id number] intervention was 100% with JORDAN 0 flow. A 6FR JCR 4 100CM Guide Catheter was used to engage the rca ostium. A IG: BMW 190cm Interventional Guidewire was used to cross the lesion. BALLOON DILATION A Balloon catheter Trek RX 2.5 X 8 was inserted and inflated up to 8.00atm for 9seconds. Repeat angiography revealed the following post-dilatation results: 80% stenosis. Additional Inflation: 12.00atm for 12seconds. Additional Inflation: 16.00atm for 10seconds. STENT DEPLOYMENT A drug-eluting stent Dawit RX Stent 2.63H46qa was inserted and inflated up to 12.00atm for 15seconds. Repeat angiography revealed the following post-stent deployment results: 0% stenosis. Additional Inflation: 12.00atm for 9seconds. Final angiography reveals 0 % stenosis with JORDAN 3 flow. PCI Technique Lesion 2 Percutaneous Coronary Intervention was performed on the right posterior descending artery. Percutaneous coronary intervention was performed on the right posterior descending artery. The lesion stenosis prior to intervention was 90% with JORDAN 0 flow. A 6FR JCR 4 100CM Guide Catheter was used to engage the rca ostium. A IG: BMW 190cm Interventional Guidewire was used to cross the lesion. Stent Deployment A drug-eluting stent Dawit RX Stent 2.0X12mm was inserted and inflated up to 8.00atm for 9seconds. Repeat angiography revealed the following post-stent deployment results: 0% stenosis. Additional Inflation: 11.00atm for 15seconds. Final angiography reveals 0 % stenosis with JORDAN 3 flow. Conclusion 1. no restenosis of stent in the proximal lad and 80% proximal stenosis of the medium sized 3rd diagonal branch 2. 80% stenosis of the second marginal branch of the circumflex artery. 3. stent in the proximal rca appeared acutely occluded. 4. 90% stenosis of the distal posterior descending branch of the RCA 5. successful placement of drug eluting stents in the proximal RCA and posterior descending branch 6. LVEF 60-65% [address] [address] CARDIAC CATH REPORT Name: ARLEEN PAGAN Room: M.007-P ADM IN M.R.#: [id number] Admission: 07/25/20 Attend Phys: Jesica Elena MD Discharge: Date of : 37 Report #: [id number] Recommendations Cardiac Rehabilitation Referral Aggressive Medical Therapy Medications Administered Clopidogrel <ELECTRONICALLY SIGNED> By: Loyd Davis MD, [facility] 07/26/20 1049 1049 1049Loyd Davis MD, FAC /INF
--- NOTE | 2020-07-26 11:04 | CON ---
[address] [address] CONSULTATION Name: ARLEEN PAGAN Room: [address] IN .R.#: [id number] Admission: 07/25/20 Attend Phys: Jesica Elena MD Discharge: Date of : 37 Report #: [id number] THIS REPORT FOR: //name// cc: Cornelio Yarbrough MD, Dean L. MD ~ THIS REPORT FOR: //name// CC: Loyd Elena DATE OF SERVICE: 07/25/2020 CARDIOLOGY CONSULTATION HISTORY OF PRESENT ILLNESS: The patient is an 84-year-old white female, who was brought to the Emergency Room complaining of chest pain. The patient has an extensive past medical history. She eventually was seen by Dr. Sanjay Grimaldo back in 02/2013, presented with an acute inferior STEMI. She was on no medications at that time. She was brought here by ambulance. Dr. Grimaldo performed urgent cardiac catheterization. She was found to have total occlusion of the right coronary artery. He then placed a stent. She was then discharged and readmitted electively a week later and had another stent placed in the right coronary artery. She was loaded with Brilinta. She has actually done well since that time. The patient is not very active at this time. The history is obtained from the patient's . The patient has a history of memory loss and dementia. She is able to walk and feed herself. She has difficulty with memory. The patient was actually admitted here to [facility] in December of this year with slurred speech. She was felt to have a TIA. CT scan showed only atrophic changes. However, she has had no recent chest pain, shortness of breath or palpitations. Earlier today, the patient, about 9:00 in the morning, had an episode of chest pain. Her actually brought her to the Emergency Room at 11:00 this morning. She was evaluated there and sent home. After she went home, after dinner tonight at 7:30 this evening, she again had an episode of chest pain, became short of breath, nauseous, diaphoretic and vomited. Her brought her back to the Emergency Room. In the Emergency Room, repeat ECG showed evidence of inferior STEMI. Cardiology consultation was requested. She denies any recent fever, cough or bleeding. PAST MEDICAL HISTORY: She has had a hysterectomy and shoulder surgery. There is no history of hypertension. She does have a history of hyperlipidemia. MEDICATIONS: Her only medications at this time include Synthroid, Aricept [place] [address] CONSULTATION Name: LATASHAADRYAN Room: [address] IN M.R.#: [id number] Admission: 07/25/20 Attend Phys: Jesica Elena MD Discharge: Date of : 37 Report #: [id number] ALLERGIES: She has no known drug allergies. FAMILY HISTORY: Positive for heart attack. SOCIAL HISTORY: She is . She and her live here in [place]. Quit smoking years ago. No alcohol abuse. REVIEW OF SYSTEMS: No history of stroke, asthma, liver disease, kidney disease, cancer or psychiatric illness. PHYSICAL EXAMINATION: GENERAL: Revealed an elderly female, who appeared in mild distress secondary to chest pain. VITAL SIGNS: She had a blood pressure of 130/70, pulse 60, she was afebrile. HEENT: She was anicteric. Conjunctivae pink. Mucous membranes appeared dry. NECK: Neck veins did not appear distended. CHEST: Clear to auscultation. CARDIAC: Regular rate and rhythm. ABDOMEN: Soft. EXTREMITIES: Had no edema. SKIN: Cool and dry. NEUROLOGIC: She was able to move all extremities. DIAGNOSTIC DATA: ECG showed sinus bradycardia; there was up to [address] segment elevation in II, III and aVF; and ST segment depression in lead I and aVL. Her workup: She had previous MRA of the carotid arteries in December that showed stenosis, less than 50%. Her chest x-ray today showed normal heart size and clear lung berger. LABORATORY WORK: Sodium 141, potassium 3.9, BUN 19, creatinine 1.4 and glucose 148. Liver function studies were normal. Troponin 0.07. BNP 183. In December, her cholesterol was 264, triglyceride 99, HDL 37, LDL 188. TSH 2.2. Her white blood cell count 9.4, hemoglobin 12.7. IMPRESSION AND RECOMMENDATIONS: 1. Acute inferior ST elevation myocardial infarction. Recommend cardiac catheterization. 2. Coronary artery disease with previous stenting. 3. Hyperlipidemia. Recommend a statin drug. 4. Dementia. 5. History of a transient ischemic attack. [address] [address] CONSULTATION Name: ARLEEN PAGAN Room: M.007-P ADM IN M.R.#: [id number] Admission: 07/25/20 Attend Phys: Jesica Elena MD Discharge: Date of : 37 Report #: [id number] Time of critical care was from 9:15 to 10:15 p.m. for a total of 1 hour of critical care time. <ELECTRONICALLY SIGNED> By: Loyd Davis MD, [facility] 07/26/20 1104 2220 2335Daserenity Davis MD, FACC /nt
[2020-07-27] VITALS (7 sets, daily range): BP systolic 98–147; BP diastolic 42–81
[2020-07-27 03:54] LABS: ABSOLUTE BASOPHILS 0.1 thou/uL (0.0-0.2); ABSOLUTE EOSINOPHILS 0.1 thou/uL (0.0-0.7); ABSOLUTE LYMPHOCYTES 1.7 thou/uL (0.8-5.3); ABSOLUTE MONOCYTES 0.7 thou/uL (0.0-1.2); ABSOLUTE NEUTROPHILS 9.1 thou/uL (1.6-8.1); BASOPHILS 0.8 %; EOSINOPHILS 1.2 %; HEMATOCRIT 32.3 % (37.0-47.0); HEMOGLOBIN 10.9 gm/dL (12.0-15.0); LYMPHOCYTES 14.3 %; MCH 28.2 pg (26.0-34.0); MCHC 33.9 g/dL (28.0-37.0); MCV 83.1 fL (80.0-100.0); MONOCYTES 5.9 %; NUCLEATED RBCS 0 /100WBC; PLATELET COUNT* 292 thou/uL (150-400); POLYS 77.8 %; RBC 3.88 mil/uL (4.20-5.00); RDW-CV 14.8 % (10.5-14.5); WBC 11.7 thou/uL (4.0-11.0)
[2020-07-27 04:07] LABS: ANION GAP 4 mmol/L (7-16); BUN 15 mg/dL (7-18); CHLORIDE 108 mmol/L (98-107); CHOLESTEROL 174 mg/dL (<200); CO2 27 mmol/L (21-32); CREATININE 1.3 mg/dL (0.6-1.3); GLUCOSE 103 mg/dL (70-99); HDL CHOLESTEROL 33 mg/dL (>40); LDL CHOLESTEROL 114 mg/dL (<100); POTASSIUM 4.1 mmol/L (3.5-5.1); SODIUM 139 mmol/L (136-145); TC:HDL 5.3 Ratio (Not establshd); TRIGLYCERIDE 139 mg/dL (<150); VLDL 28 mg/dL (<40)
[2020-07-27 04:21] LABS: SERUM ASSESSMENT CLEAR
[2020-07-27] MEDS ORDERED: LIPITOR 40 MG T40 M1 PO (10:40)
[2020-07-27] MEDS ORDERED: PLAVIX 75 MG TA75 M1 PO (10:40)
[2020-07-27] MEDS ORDERED: PROTONIX40 M4 PO (11:01)
--- NOTE | 2020-07-28 10:42 | EKG ---
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[employer]: ROBI : 1935 Requested By: Jesica Elena Order Number: [id number] Reading MD: Loyd Davis Measurements Intervals [place] Rate: 43 P: 59 CO: 147 QRS: -8 QRSD: 86 T: 80 QT: 545 QTc: 461 Interpretive Statements Sinus bradycardia Ventricular premature complex Compared to ECG 07/25/2020 20:09:55 Ventricular premature complex(es) now present Myocardial infarct finding no longer present Electronically Signed On 07-28-2020 10:42:40 CDT by Loyd Davis [email or web address] <ELECTRONICALLY SIGNED> By: Loyd Davis MD, FAC 07/28/20 1042 2306 2306 Loyd aDvis MD, FAC /EPI
--- NOTE | 2020-07-28 10:44 | EKG ---
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 : 1935 Requested By: Loyd Davis Order Number: [id number] Aiyana MD: Loyd Davis Measurements Intervals [place] Rate: 56 P: 56 MA: 150 QRS: -5 QRSD: 94 T: 69 QT: 459 QTc: 444 Interpretive Statements Sinus bradycardia Compared to ECG 07/25/2020 20:09:55 PVC no longer present Electronically Signed On 07-28-2020 10:44:15 CDT by Loyd Davis [email or web address] <ELECTRONICALLY SIGNED> By: Loyd Davis MD, [facility] 07/28/20 1044 0552 0552 Loyd Davis MD, [facility] /EPI
== END 2020-07-27 14:00 | disposition home or self-care (01) | DRG 246 ==
LOC: M.ERS 19:29 → M.CL 19:29 → M.ICU 20:30 → M.TBA-CV 20:30 → M.ICU 21:51
PROVIDERS: Family Medicine; Internal Medicine Cardiovascular Disease; ADMIT Internal Medicine; ATTEND Internal Medicine
PROC: 4A023N7 Measurement of Cardiac Sampling and Pressure, Left Heart, Percutaneous Approach (ICD-10-PCS; principal; 2020-07-25)
PROC: B211YZZ Fluoroscopy of Multiple Coronary Arteries using Other Contrast (ICD-10-PCS; principal; 2020-07-25)
PROC: 3E033PZ Introduction of Platelet Inhibitor into Peripheral Vein, Percutaneous Approach (ICD-10-PCS; principal; 2020-07-25)
PROC: B215YZZ Fluoroscopy of Left Heart using Other Contrast (ICD-10-PCS; principal; 2020-07-25)
PROC: 027135Z Dilation of Coronary Artery, Two Arteries with Two Drug-eluting Intraluminal Devices, Percutaneous Approach (ICD-10-PCS; principal; 2020-07-25)
DX: T82.867A Thrombosis due to cardiac prosthetic devices, implants and grafts, initial encounter (principal); I21.19 ST elevation (STEMI) myocardial infarction involving other coronary artery of inferior wall; G93.41 Metabolic encephalopathy; K92.2 Gastrointestinal hemorrhage, unspecified; Y83.8 Other surgical procedures as the cause of abnormal reaction of the patient, or of later complication, without mention of misadventure at the time of the procedure; E78.5 Hyperlipidemia, unspecified; E78.00 Pure hypercholesterolemia, unspecified; E03.9 Hypothyroidism, unspecified; I25.10 Atherosclerotic heart disease of native coronary artery without angina pectoris; E11.9 Type 2 diabetes mellitus without complications; Z20.828 Contact with and (suspected) exposure to other viral communicable diseases; F03.90 Unspecified dementia, unspecified severity, without behavioral disturbance, psychotic disturbance, mood disturbance, and anxiety; Z79.899 Other long term (current) drug therapy; Z79.82 Long term (current) use of aspirin; Y92.89 Other specified places as the place of occurrence of the external cause; Z90.710 Acquired absence of both cervix and uterus

== ENCOUNTER 2020-07-27 21:58 | Emergency (ER) | payer MEDICARE ==
[~2020-07-27] VITALS: Ht 157.5 cm; Wt 53.5 kg
[~2020-07-27 21:58] MED LIST changes: +LIPITOR 40 MG T40 M1 PO; +PLAVIX 75 MG TA75 M1 PO; +PROTONIX40 M4 PO
[2020-07-27 22:21] LABS: ABSOLUTE BASOPHILS 0.1 thou/uL (0.0-0.2); ABSOLUTE EOSINOPHILS 0.2 thou/uL (0.0-0.7); ABSOLUTE LYMPHOCYTES 2.1 thou/uL (0.8-5.3); ABSOLUTE MONOCYTES 0.8 thou/uL (0.0-1.2); ABSOLUTE NEUTROPHILS 8.1 thou/uL (1.6-8.1); BASOPHILS 0.7 %; EOSINOPHILS 1.8 %; HEMATOCRIT 35.2 % (37.0-47.0); HEMOGLOBIN 12.1 gm/dL (12.0-15.0); LYMPHOCYTES 18.5 %; MCH 28.4 pg (26.0-34.0); MCHC 34.3 g/dL (28.0-37.0); MCV 82.8 fL (80.0-100.0); MONOCYTES 7.4 %; MPV 7.1 fl. (7.2-11.1); NUCLEATED RBCS 0 /100WBC; POLYS 71.6 %; RBC 4.26 mil/uL (4.20-5.00); RDW-CV 14.6 % (10.5-14.5); WBC 11.3 thou/uL (4.0-11.0)
[2020-07-27 22:23] LABS: PLATELET COUNT* 383 thou/uL (150-400)
[2020-07-27 22:33] LABS: APTT 27.5 Seconds (25.0-31.3); PROTIME 10.6 Seconds (9.20-11.50)
[2020-07-27 22:37] LABS: ALBUMIN 3.6 g/dL (3.4-5.0); CALCIUM 8.3 mg/dL (8.5-10.1); CREATININE 1.4 mg/dL (0.6-1.3); POTASSIUM 3.5 mmol/L (3.5-5.1); TOTAL BILIRUBIN 0.7 mg/dL (<0.1-1.0); TOTAL PROTEIN 7.1 g/dL (6.4-8.2)
[2020-07-27 23:05] VITALS: BP 161/86
--- NOTE | 2020-07-28 10:54 | EKG ---
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 07/28/20 1054 17 17 Loyd Davis MD, [facility] /EPI
== END 2020-07-27 23:07 | disposition home or self-care (01) ==
LOC: M.ERS 21:58
PROVIDERS: Family Medicine
DX: K06.8 Other specified disorders of gingiva and edentulous alveolar ridge (principal); E78.00 Pure hypercholesterolemia, unspecified; E03.9 Hypothyroidism, unspecified; Z91.018 Allergy to other foods; Z95.5 Presence of coronary angioplasty implant and graft